=== PATIENT | female | born 1995 | race Caucasian/White ===

== ENCOUNTER 2022-04-16 18:29 | Emergency (ER) | payer OTHER ==
[~2022-04-16] VITALS: Ht 160 cm; Wt 64.3 kg
[2022-04-16 18:30] VITALS: BP 127/76
[2022-04-16] MEDS ORDERED: CYMB1CAP5 PO (18:41)
[2022-04-16] MEDS ORDERED: ACETAMINOPHEN 500 MG TAB PO ONE (20:50)
[2022-04-16 20:55] LABS: BASO % 0.6 % (0.0-1.0); EOS # 0.1 10^3/uL (0.0-0.5); EOS % 1.6 % (0.0-3.0); HEMATOCRIT 38.9 % (36.0-47.0); HEMOGLOBIN 13.1 g/dl (12.0-15.5); LYMPH # 2.8 10^3/uL (1.5-5.0); LYMPH % 43.4 % (24.0-44.0); MEAN CORPUSCULAR HEMOGLOBIN 27.7 pg (27.0-33.0); MEAN CORPUSCULAR HGB CONC 33.7 g/dl (32.0-36.5); MEAN CORPUSCULAR VOLUME 82.2 fl (80.0-96.0); MONO # 0.4 10^3/uL (0.0-0.8); MONO % 6.1 % (2.0-8.0); NEUTROPHILS # 3.1 10^3/uL (1.5-8.5); PLATELET COUNT, AUTOMATED 244 10^3/uL (150-450); RED BLOOD COUNT 4.73 10^6/uL (4.00-5.40); WHITE BLOOD COUNT 6.4 10^3/uL (4.0-10.0)
== END 2022-04-16 22:30 | disposition home or self-care (01) ==
LOC: M ED 18:29
DX: R10.2 Pelvic and perineal pain (principal); Z3A.01 Less than 8 weeks gestation of pregnancy

== ENCOUNTER → 2022-04-19 | Outpatient (CLI) | payer OTHER ==
[~2022-04-19] MED LIST: CYMB1CAP5 PO
== END ==
LOC: M LAB 10:05
PROVIDERS: ATTEND Physician Assistant
DX: R10.2 Pelvic and perineal pain (principal)

== ENCOUNTER 2022-12-28 18:51 | Inpatient (IN) | payer OTHER ==
[~2022-12-28] VITALS: Ht 160 cm; Wt 75.0 kg
[2022-12-28] MEDS ORDERED: HOME MED LIST COMPLETE! XX SCH (19:20)
[2022-12-28 19:35] VITALS: BP 122/69
[2022-12-28 19:36] LABS: HEMATOCRIT 41.2 % (36.0-47.0); HEMOGLOBIN 14.2 g/dl (12.0-15.5); MEAN CORPUSCULAR HEMOGLOBIN 30.7 pg (27.0-33.0); MEAN CORPUSCULAR HGB CONC 34.5 g/dl (32.0-36.5); PLATELET COUNT, AUTOMATED 184 10^3/uL (150-450); RED BLOOD COUNT 4.63 10^6/uL (4.00-5.40); WHITE BLOOD COUNT 12.3 10^3/uL (4.0-10.0)
[2022-12-28] MEDS ORDERED: OXYTOCIN 30UNITS IN 0.9% NaCl 500ML IV BAG As Ordered ONE (19:54)
[2022-12-28] MEDS ORDERED: IBUPROFEN 600MG TAB PO PRN (20:10)
[2022-12-28] MEDS ORDERED: METHYLERGONOVINE MALEATE 0.2 MG TAB PO PRN (20:10)
[2022-12-28] MEDS ORDERED: PROMETHAZINE 25 MG TAB PO PRN (20:10)
[2022-12-28] MEDS ORDERED: ACETAMINOPHEN 500 MG TAB PO PRN (20:10)
[2022-12-28] MEDS ORDERED: DOCUSATE SODIUM 100MG CAPSULE PO PRN (20:10)
[2022-12-28] MEDS ORDERED: DIBUCAINE 1% OINTMENT 30GM TOP PRN (20:10)
[2022-12-28] MEDS ORDERED: MOM 30ML SUSPENSION UDC PO PRN (20:10)
[2022-12-28] MEDS ORDERED: OXYTOCIN DRIP 30 UNITS in IV 1 EA IV SCH ×4 (20:10)
[2022-12-28] MEDS ORDERED: RHOGAM 300MCG (1500IU) INJ IM SCH (20:10)
[2022-12-28] MEDS ORDERED: ACETAMINOPHEN TAB 650MG DOSE (2X325MG) PO PRN (20:10)
[2022-12-28] MEDS ORDERED: LR 1,000 ML IV SCH (20:10)
[2022-12-28 20:14] LABS: CORD GAS ABE A -4.4; CORD GAS ABE V -3.3; CORD GAS HCO3 A 21.2 MMOL/L; CORD GAS HCO3 V 20.7 MMOL/L; CORD GAS O2 SAT A 44.4 %; CORD GAS O2 SAT V 60.4 %; CORD GAS PCO2 A 41.2 mmHg; CORD GAS PCO2 V 34.5 mmHg; CORD GAS PH A 7.33 UNITS; CORD GAS PH V 7.397 UNITS; CORD GAS PO2 A 20.5 mmHg; CORD GAS PO2 V 24.8 mmHg; CORD GAS SBC A 19.5 MMOL/L; CORD GAS SBC V 20.9 MMOL/L; CORD GAS TCO2 A 22.5 MMOL/L; CORD GAS TCO2 V 21.8 MMOL/L
[2022-12-28 21:53] VITALS: BP 112/60; O2SAT 96
[2022-12-28] MEDS: IBUPROFEN 800 MG TAB PO PRN (22:16)
[2022-12-29 06:00] VITALS: BP 123/74; O2SAT 99
[2022-12-29] MEDS: PRENATAL VITAMINS CHEWABLE TABLET PO SCH (09:26)
[2022-12-29] MEDS: IBUPROFEN 800 MG TAB PO PRN ×2 (11:05→19:36)
[2022-12-29 18:00] VITALS: BP 118/78; O2SAT 97
[2022-12-30 06:00] VITALS: BP 110/65; O2SAT 97
[2022-12-30] MEDS ORDERED: MEASLES,MUMPS,RUBELLA VACCINE INJ (MMR-II) SC.IMMUN ONE (09:00)
[2022-12-30] MEDS: PRENATAL VITAMINS CHEWABLE TABLET PO SCH (09:11)
== END 2022-12-30 11:25 | disposition home or self-care (01) | DRG 807 ==
LOC: M LDO 18:51 → M LDI 19:08 → M OBS 21:53
PROVIDERS: ADMIT Obstetrics & Gynecology; ATTEND Obstetrics & Gynecology
PROC: 10E0XZZ Delivery of Products of Conception, External Approach (ICD-10-PCS; principal; 2022-12-28)
DX: O69.1XX0 Labor and delivery complicated by cord around neck, with compression, not applicable or unspecified (principal); Z37.0 Single live birth; Z3A.40 40 weeks gestation of pregnancy; O77.0 Labor and delivery complicated by meconium in amniotic fluid

== ENCOUNTER 2023-06-11 11:11 | Emergency (ER) | payer OTHER ==
[~2023-06-11] VITALS: Ht 160 cm; Wt 62.7 kg
[2023-06-11] MEDS ORDERED: KETO10TAB PO (13:55)
[2023-06-11] MEDS: KETOROLAC 30 MG/ML 1ML VIAL IV ONE (13:55)
[2023-06-11 14:04] VITALS: BP 101/64; TEMP 97.7; O2SAT 100
== END 2023-06-11 14:30 | disposition home or self-care (01) ==
LOC: M ED 11:11 → EDBD 11:11 → M ED 14:30
DX: S39.92XA Unspecified injury of lower back, initial encounter (principal); W10.8XXA Fall (on) (from) other stairs and steps, initial encounter; Y92.9 Unspecified place or not applicable; Y93.9 Activity, unspecified; Y99.9 Unspecified external cause status; F41.9 Anxiety disorder, unspecified; Z79.899 Other long term (current) drug therapy; Z91.018 Allergy to other foods; Z91.040 Latex allergy status
CPT/HCPCS: 72220; 96374; 99284; J1885